=== PATIENT | male | born 1970 | race Caucasian/White ===

== ENCOUNTER 2020-05-16 07:47 | Outpatient (CLI) | payer OTHER ==
--- NOTE | 2020-05-16 11:03 | MRI Report ---
PROCEDURE: Brain W/O INDICATIONS: Headache TECHNIQUE: Noncontrast axial T1 spin echo, axial T2 fast spin echo, sagittal and axial FLAIR, coronal T2 fast sp in echo, axial gradient echo, axial diffusion and ADC through the brain. COMPARISON: None. FINDINGS: Image quality: Excellent. CSF Spaces: Basal cisterns are patent. No extra-axial fluid collections. Ventricles are normal in size and shape. Brain: No intracranial masses or hemorrhage. Calix/white matter interface is normal. Brainstem appe ars normal. Diffusion-weighted images demonstrate no acute ischemic insult. No chronic ischemic ins ults. Normal intravascular flow voids are present. Skull and face: Calvarium has normal marrow signal. Orbits appear normal. Sinuses: Sinuses and mastoids are clear. IMPRESSION: No acute or otherwise significant intracranial abnormality. Reviewed by: Wesly Barba MD on 05/16/2020 11:02 AM [facility] Approved by: Wesly Barba MD on 05/16/2020 11:02 AM [facility] Station ID: [id number]
--- NOTE | 2020-05-16 11:07 | MRI Report ---
PROCEDURE: Cervical Spine W/O INDICATIONS: Headache TECHNIQUE: Noncontrast sagittal T1 spin echo and T2 fast spin echo, sagittal STIR, foraminal oblique sagittal T2 fast spin echo, and axial gradient echo or T2 fast spin echo through the cervical spine. COMPARISON: None. FINDINGS: Image quality: Degraded by patient motion artifact. Alignment and Curvature: Normal cervical lordosis. There is a mild levoscoliosis at the cervicothorac ic junction which may be positional. Bone Marrow: Degenerative marrow signal changes at the opposing endplates from C3-C4 through C7-T1. N o suspicious focal marrow signal abnormality. Spinal Cord: No syrinx or cord signal abnormality demonstrated. Normal morphology of the cervical cor d. Regional Soft Tissues: No prevertebral or paravertebral masses. Prevertebral soft tissues are milad l in thickness. C2-C3: No spinal canal stenosis. Facet and uncovertebral hypertrophy contribute to mild right neural foraminal narrowing. C3-C4: Posterior disc-osteophyte flattens the ventral thecal sac without mass effect upon the cord. Facet and uncovertebral hypertrophy contribute to moderate left and mild right neural foraminal sten osis. C4-C5: Posterior disc-osteophyte complex minimally flattens the ventral thecal sac. No mass effect u romulo the cord. Facet and uncovertebral hypertrophy contribute to mild bilateral neural foraminal steno sis. C5-C6: Posterior disc-osteophyte complex without mass effect upon the cord. Facet and uncovertebral hypertrophy are present, contributing to at most mild bilateral neural foraminal stenosis. C6-C7: Posterior disc-osteophyte complex flattens the ventral thecal sac. No mass effect upon the co rd. Facet articular hypertrophy contribute to moderate left and mild right neural foraminal stenosis. C7-T1: No spinal canal or neural foraminal stenosis. IMPRESSION: Overall mild multilevel multifactorial degenerative changes, worst at C3-C4 there is moderate left ne ural foraminal narrowing. Reviewed by: Wesly Barba MD on 05/16/2020 11:06 AM PST Approved by: Wesly Barba MD on 05/16/2020 11:06 AM PST Station ID: [id number]
== END 2020-05-16 07:48 | disposition home or self-care (01) ==
LOC: DI 07:47
PROVIDERS: ATTEND Nurse Practitioner Family
DX: R51.9 Headache, unspecified (principal); M47.812 Spondylosis without myelopathy or radiculopathy, cervical region; M50.31 Other cervical disc degeneration, high cervical region; M48.02 Spinal stenosis, cervical region